=== PATIENT | male | born 1965 | race Caucasian/White ===

== ENCOUNTER 2016-09-16 18:34 | Emergency (ER) | payer OTHER ==
[~2016-09-16 18:34] MED LIST: AMARYL4 MG PO; ASPIRIN325 MG PO; FLOMAX0.4 MG PO; GLUCOPHAGE1000 MG PO; LANTUS100 UNIT/1 SQ; LEVAQUIN750 MG PO; LIPITOR10 MG PO; NORVASC5 MG PO; PERCOCET 10-321 EACH PO; PLAVIX75 MG PO; PROTONIX40 MG PO; TOPROL XL50 MG PO; ZESTRIL20 M1 PO; ZOLOFT100 MG PO
[2016-09-16 20:13] LABS: BASO % 0.1 % (0.2-1.2); EOS # 0.1 10_X3_uL (0.0-0.5); EOS % 1.3 % (0.8-7.0); GRAN # 4.7 10_X3_uL (1.8-5.4); GRAN % 52.4 % (34.0-67.9); HEMATOCRIT 40.3 % (40-51); LYMPH # 3.4 10_X3_uL (1.3-3.6); LYMPH % 38.1 % (21.8-53.1); MEAN CORPUSCULAR HEMOGLOBIN 27.9 pg (27.0-33.0); MEAN CORPUSCULAR HGB CONC 34.7 g/dL (32.0-36.0); MEAN CORPUSCULAR VOLUME 80.3 fL (79-92); MEAN PLATELET VOLUME 11.5 fl (7.5-11.5); MONO # 0.7 10_X3_uL (0.3-0.8); MONO % 8.1 % (5.3-12.2); PLATELET COUNT 103 x10_3/uL (163-337); RED BLOOD COUNT 5.02 x10_6/uL (4.6-6.1); RED CELL DISTRIBUTION WIDTH 14.8 % (11.6-14.4)
[2016-09-16 20:15] LABS: URINE BILIRUBIN NEGATIVE (NEGATIVE); URINE BLOOD NEGATIVE (NEGATIVE); URINE KETONE NEGATIVE (NEGATIVE); URINE LEUKOCYTE ESTERASE NEGATIVE (NEGATIVE); URINE NITRATE NEGATIVE (NEGATIVE); URINE PROTEIN NEGATIVE (NEGATIVE); UROBILINOGEN NORMAL mg/dL (<1.0)
[2016-09-16 20:19] LABS: URINE GLUCOSE (UA) 1000 mg/dL (NORMAL)
[2016-09-16 20:24] LABS: ALBUMIN 4.3 gm/dL (3.4-5.0); ALKALINE PHOSPHATASE 116 U/L (50-136); ALT/SGPT 16 U/L (7.53-40.17); AMYLASE 77 U/L (15.62-74.58); AST/SGOT 13 U/L (6.66-35.34); BILIRUBIN,TOTAL 0.28 mg/dL (0.0-1.0); BLOOD UREA NITROGEN 11 mg/dL (7-18); CALCIUM 9.6 mg/dL (8.7-10.7); CARBON DIOXIDE 21 mmol/L (21-32); CREATININE 0.7 mg/dL (0.6-1.3); GLUCOSE,RANDOM 391 mg/dL (70-99); LIPASE 84 U/L (6.75-60.75); POTASSIUM 4.4 mmol/L (3.5-5.1); SODIUM 137 mmol/L (136-145); TOTAL PROTEIN 7.3 gm/dL (6.4-8.2)
== END 2016-09-16 21:41 | disposition home or self-care (01) ==
LOC: ER 18:34
PROVIDERS: Emergency Medicine
DX: N41.1 Chronic prostatitis (principal); E11.65 Type 2 diabetes mellitus with hyperglycemia; M54.9 Dorsalgia, unspecified; I10 Essential (primary) hypertension; Z96.642 Presence of left artificial hip joint; R10.9 Unspecified abdominal pain; R36.9 Urethral discharge, unspecified; Z88.1 Allergy status to other antibiotic agents; Z79.899 Other long term (current) drug therapy; Z79.82 Long term (current) use of aspirin; Z79.84 Long term (current) use of oral hypoglycemic drugs
CPT/HCPCS: 36415; 74150; 80053; 81003; 82150; 83690; 85025; 96374; 96375; 99070; 99284; 99284-25

== ENCOUNTER 2017-03-31 20:50 | Emergency (ER) | payer OTHER ==
[2017-03-31 21:42] LABS: BASO % 0.2 % (0.2-1.2); EOS # 0.1 10_X3_uL (0.0-0.5); EOS % 1.5 % (0.8-7.0); GRAN # 5.7 10_X3_uL (1.8-5.4); GRAN % 61.1 % (34.0-67.9); HEMATOCRIT 38.7 % (40-51); HEMOGLOBIN 13.6 g/dL (13.7-17.5); LYMPH # 2.7 10_X3_uL (1.3-3.6); LYMPH % 29.3 % (21.8-53.1); MEAN CORPUSCULAR HEMOGLOBIN 27.6 pg (27.0-33.0); MEAN CORPUSCULAR HGB CONC 35.1 g/dL (32.0-36.0); MEAN CORPUSCULAR VOLUME 78.7 fL (79-92); MEAN PLATELET VOLUME 11.8 fl (7.5-11.5); MONO # 0.7 10_X3_uL (0.3-0.8); MONO % 7.9 % (5.3-12.2); PLATELET COUNT 209 x10_3/uL (163-337); RED BLOOD COUNT 4.92 x10_6/uL (4.6-6.1); RED CELL DISTRIBUTION WIDTH 15.8 % (11.6-14.4); WHITE BLOOD COUNT 9.4 x10_3/uL (4.2-9.1)
[2017-03-31 22:09] LABS: ALBUMIN 4.1 gm/dL (3.4-5.0); ALKALINE PHOSPHATASE 135 U/L (50-136); ALT/SGPT 29 U/L (7.53-40.17); AMYLASE 42 U/L (15.62-74.58); AST/SGOT 23 U/L (6.66-35.34); BILIRUBIN,TOTAL 0.33 mg/dL (0.0-1.0); BLOOD UREA NITROGEN 13 mg/dL (7-18); CALCIUM 9.3 mg/dL (8.7-10.7); CARBON DIOXIDE 19 mmol/L (21-32); CREATININE 0.8 mg/dL (0.6-1.3); LIPASE 53 U/L (6.75-60.75); POTASSIUM 4.3 mmol/L (3.5-5.1); SODIUM 133 mmol/L (136-145); TOTAL PROTEIN 8.6 gm/dL (6.4-8.2)
[2017-03-31 22:19] LABS: GLUCOSE,RANDOM 435 mg/dL (70-99)
[2017-03-31 23:13] LABS: URINE BILIRUBIN NEGATIVE (NEGATIVE); URINE BLOOD 1+ (NEGATIVE); URINE KETONE NEGATIVE (NEGATIVE); URINE LEUKOCYTE ESTERASE TRACE (NEGATIVE); URINE NITRATE NEGATIVE (NEGATIVE); URINE PROTEIN TRACE (NEGATIVE); UROBILINOGEN NORMAL mg/dL (<1.0)
[2017-03-31 23:29] LABS: URINE GLUCOSE (UA) 1000 mg/dL (NORMAL)
[2017-03-31 23:30] LABS: URINE SQUAMOUS EPITHELIAL CELL 0-10 /[HPF] (NONE SEEN); URINE WBC 0-5 /[HPF] (0-3)
== END 2017-04-01 01:10 | disposition home or self-care (01) ==
LOC: ER 20:50
PROVIDERS: General Practice
DX: E11.65 Type 2 diabetes mellitus with hyperglycemia (principal); R10.11 Right upper quadrant pain; R10.12 Left upper quadrant pain; R31.9 Hematuria, unspecified; G89.4 Chronic pain syndrome; F17.210 Nicotine dependence, cigarettes, uncomplicated; Z88.1 Allergy status to other antibiotic agents; Z79.84 Long term (current) use of oral hypoglycemic drugs; Z79.899 Other long term (current) drug therapy
CPT/HCPCS: 36415; 80053; 80307; 81001; 82150; 83690; 85025; 96374; 99284; 99284-25; J1170; J7040; Q9967